=== PATIENT | female | born 1935 | race Caucasian/White ===

== ENCOUNTER 2016-10-13 19:52 | Inpatient (IN) | payer OTHER ==
[~2016-10-13] VITALS: Ht 152.4 cm; Wt 55.5 kg
[~2016-10-13 19:52] MED LIST: ALTACE10 MG PO; AMOXICILLIN500 MG PO; ARICEPT10 MG PO; ASPIR 8181 M1 PO; ASPIR-LOW81 MG PO; ASPIRIN E.C.81 M1 PO; Aricept PO; CALCIUM 600 +1 EAC2 PO; CHLORDIAZEPOXI1 EAC1 PO; COUMADIN,JANTO2.5 MG PO; COUMADIN2 MG PO; COUMADIN2.5 MG PO; COZAAR50 MG PO; CRESTOR10 MG PO; DETROL LA4 MG PO; DEXILANT60 MG PO; DOK PLUS TABLE1 EACH PO; Detrol LA PO; EXCEDRIN EXTRA1 EACH PO; FISH OIL 1,0001 EAC7 PO; FOSAMAX70 MG PO; GUAIFENESIN WI120 ML; LOPRESSOR25 MG PO; LYRICA50 MG; LYRICA75 MG PO; METOPROLOL SUCC25 MG PO; METOPROLOL TART25 MG PO; NAMENDA XR21 MG PO; NAMENDA10 MG PO; NORVASC5 MG PO; Namenda PO; OXYCODONE HCL15 MG PO; OXYCODONE HCL5 MG PO; OXYCONTIN10 MG PO; POLYETHYLENE GL17 GM PO; PRAVASTATIN SOD40 MG PO; SYNTHROID50 MCG PO; TOPROL; VOLTAREN50 M1 PO; VOLTAREN50 MG PO; WARFARIN SODIU2.5 MG PO; [UNRECOGNIZED DRUG - REMARK]; [UNRECOGNIZED DRUG - REMARK]; oxyCODONE PO
[2016-10-13 21:10] LABS: HEMATOCRIT 35.4 % (36.0-46.0); MCH 26.5 PG (29.0-34.0); MCHC 32.2 G/DL (30.0-36.0); MCV 82.3 FL (83-99); PLATELET COUNT 392 K/uL (156-360); RBC DIS.WIDTH-CV 18.3 % (11.8-14.6); WHITE BLOOD COUNT 11.4 K/uL (4.1-10.2)
[2016-10-13 21:16] LABS: INTER. NORMALIZED RATIO 1.2; PROTHROMBIN TIME 13.6 SEC (10.2-12.9)
[2016-10-13 21:18] LABS: PTT 29.8 SEC (25-37)
[2016-10-13 21:30] LABS: ANION GAP 11 MEQ/L (2-14); CHLORIDE 103 MEQ/L (99-109); POTASSIUM 3.7 MEQ/L (3.7-5.4); SAMPLE HEMOLYSIS CHECK 0; SAMPLE ICTERIC CHECK 0; SAMPLE LIPEMIA CHECK 0; SODIUM 138 MEQ/L (136-147)
[2016-10-13 21:31] LABS: TROP-I INTERPRETATION NEGATIVE; TROPONIN-I < 0.01 ng/mL (0.0-0.30)
[2016-10-13 21:35] LABS: GFR ESTIMATE (CALCULATED) 38 mL/min/; GLUCOSE 112 mg/dL (70-99); UREA NITROGEN (BUN) 18 mg/dL (9-23)
[2016-10-13] MEDS ORDERED: FAMOTIDINE40 MG PO (22:42)
[2016-10-13] MEDS ORDERED: BLUE EMU TP (22:43)
[2016-10-13] MEDS ORDERED: MUCINEX1200 MG PO (22:44)
[2016-10-13] MEDS ORDERED: TYLENOL EXTRA500 MG PO (22:44)
[2016-10-13] MEDS ORDERED: BENADRYL25 MG PO (22:44)
[2016-10-13] MEDS ORDERED: EXCEDRIN MIGRA1 EAC3 PO (22:45)
[2016-10-14] VITALS (7 sets, daily range): BP systolic 125–160; BP diastolic 59–79
[2016-10-15 04:08] VITALS: BP 158/65
[2016-10-15 07:06] LABS: HEMATOCRIT 28.3 % (36.0-46.0)
[2016-10-15 07:40] VITALS: BP 147/67
[2016-10-15 11:22] VITALS: BP 152/69
[2016-10-15 16:42] VITALS: BP 160/69
[2016-10-15 20:02] VITALS: BP 141/65
[2016-10-16 00:28] VITALS: BP 140/64
[2016-10-16 03:14] VITALS: BP 163/66
[2016-10-16 07:38] LABS: ANION GAP 10 MEQ/L (2-14); CHLORIDE 106 MEQ/L (99-109); GFR ESTIMATE (CALCULATED) > 59 mL/min/; GLUCOSE 176 mg/dL (70-99); POTASSIUM 3.6 MEQ/L (3.7-5.4); SAMPLE HEMOLYSIS CHECK 0; SAMPLE ICTERIC CHECK 0; SAMPLE LIPEMIA CHECK 0; SODIUM 138 MEQ/L (136-147); UREA NITROGEN (BUN) 8 mg/dL (9-23)
[2016-10-16 07:47] LABS: MCH 26.1 PG (29.0-34.0); MCV 81.7 FL (83-99); RBC DIS.WIDTH-CV 18.2 % (11.8-14.6); RBC DIS.WIDTH-SD 54.4 % (39-53); WHITE BLOOD COUNT 12.1 K/uL (4.1-10.2)
[2016-10-16 07:48] LABS: RED BLOOD COUNT 3.06 M/uL (3.80-5.20)
[2016-10-16 07:59] LABS: HEMATOLOGY COMMENT 1 INDICES RECAL; PLAT.SUFFICIENCY ADEQUATE
[2016-10-16 11:20] VITALS: BP 136/63
[2016-10-16 12:24] LABS: HEMATOCRIT 27.5 % (36.0-46.0); MCV 82.8 FL (83-99)
[2016-10-16 13:06] LABS: ANION GAP 9 MEQ/L (2-14); CHLORIDE 105 MEQ/L (99-109); GFR ESTIMATE (CALCULATED) > 59 mL/min/; GLUCOSE 150 mg/dL (70-99); POTASSIUM 3.8 MEQ/L (3.7-5.4); SAMPLE HEMOLYSIS CHECK 0; SAMPLE ICTERIC CHECK 0; SAMPLE LIPEMIA CHECK 0; SODIUM 135 MEQ/L (136-147); UREA NITROGEN (BUN) 8 mg/dL (9-23)
[2016-10-16 15:15] VITALS: BP 156/71
[2016-10-16 20:14] VITALS: BP 163/71
[2016-10-17 00:24] VITALS: BP 171/67
[2016-10-17 04:23] VITALS: BP 128/98
[2016-10-17 08:15] VITALS: BP 143/61
[2016-10-17 12:08] VITALS: BP 160/68
[2016-10-17 16:17] VITALS: BP 166/89
== END 2016-10-17 18:28 | DRG 470 ==
LOC: EME → EDBD 19:52 → EDOF 23:23 → 3EAST 23:23 → ENRESERV 23:26 → 3EAST 10-14 01:04
PROVIDERS: Emergency Medicine; Family Medicine; Orthopaedic Surgery Hand Surgery; Physician Assistant
PROC: 0SRR0JZ Replacement of Right Hip Joint, Femoral Surface with Synthetic Substitute, Open Approach (ICD-10-PCS; principal; 2016-10-14)
DX: S72.011A Unspecified intracapsular fracture of right femur, initial encounter for closed fracture (principal); I69.354 Hemiplegia and hemiparesis following cerebral infarction affecting left non-dominant side; F03.90 Unspecified dementia, unspecified severity, without behavioral disturbance, psychotic disturbance, mood disturbance, and anxiety; W10.9XXA Fall (on) (from) unspecified stairs and steps, initial encounter; E78.5 Hyperlipidemia, unspecified; F12.90 Cannabis use, unspecified, uncomplicated; I10 Essential (primary) hypertension; I25.10 Atherosclerotic heart disease of native coronary artery without angina pectoris; I25.2 Old myocardial infarction; I48.0 Paroxysmal atrial fibrillation; Z86.73 Personal history of transient ischemic attack (TIA), and cerebral infarction without residual deficits; J44.9 Chronic obstructive pulmonary disease, unspecified; K21.9 Gastro-esophageal reflux disease without esophagitis; M19.90 Unspecified osteoarthritis, unspecified site; M81.0 Age-related osteoporosis without current pathological fracture; Z79.01 Long term (current) use of anticoagulants; Z87.11 Personal history of peptic ulcer disease; Z95.5 Presence of coronary angioplasty implant and graft; Y92.410 Unspecified street and highway as the place of occurrence of the external cause; I69.319 Unspecified symptoms and signs involving cognitive functions following cerebral infarction; I08.1 Rheumatic disorders of both mitral and tricuspid valves
CPT/HCPCS: 71010; 73501; 80048; 80048 91; 84484; 85014; 85018; 85027; 85610; 85730; 86900; 86901; 93005; 94640; 97530 GP; 99281; 99285; J1650; J2270; J3010; J3370; J7030; J7042

== ENCOUNTER 2016-11-12 14:50 | Emergency (ER) | payer OTHER ==
[~2016-11-12] VITALS: Ht 147.3 cm; Wt 51.0 kg
[~2016-11-12 14:50] MED LIST changes: +BENADRYL25 MG PO; +BLUE EMU TP; +EXCEDRIN MIGRA1 EAC3 PO; +FAMOTIDINE40 MG PO; +MUCINEX1200 MG PO; +TYLENOL EXTRA500 MG PO
[2016-11-12 17:30] LABS: EOSINOPHIL (%) 1.3 % (0-5); EOSINOPHIL COUNT 0.1 K/uL (0-0.3); HEMATOCRIT 35.4 % (36.0-46.0); IMMATURE GRANULOCYTE (%) 0.3 % (0.0-0.7); INSTRUMENT ABS NEUTROPHIL CT 6.9 K/uL; LYMPHOCYTE COUNT 2.2 K/uL (1.0-2.8); MCH 26.2 PG (29.0-34.0); MCHC 31.4 G/DL (30.0-36.0); MCV 83.5 FL (83-99); MEAN PLAT.VOLUME 8.8 uM^3 (9.5-12.4); MONOCYTE (%) 7.4 % (3-12); MONOCYTE COUNT 0.7 K/uL (0-0.8); NEUTROPHIL (%) 69.1 % (45-76); NEUTROPHIL COUNT 6.9 K/uL (1.8-6.4); PLATELET COUNT 367 K/uL (156-360); RBC DIS.WIDTH-CV 18.1 % (11.8-14.6); RBC DIS.WIDTH-SD 55.5 % (39-53); RED BLOOD COUNT 4.24 M/uL (3.80-5.20); WHITE BLOOD COUNT 9.9 K/uL (4.1-10.2)
[2016-11-12 17:33] LABS: CHLORIDE 108 mEq/L (99-109); POTASSIUM 3.4 mEq/L (3.7-5.4); SODIUM 142 mEq/L (136-147)
[2016-11-12 17:35] LABS: GLUCOSE 98 mg/dL (70-99)
[2016-11-12 17:36] LABS: ANION GAP 14 MEQ/L (2-14)
[2016-11-12 17:37] LABS: TOTAL BILIRUBIN 0.2 mg/dL (0.0-1.0)
[2016-11-12 17:38] LABS: ALKALINE PHOSPHATASE 76 IU/L (3-129)
[2016-11-12 17:39] LABS: GFR ESTIMATE (CALCULATED) 57 mL/min/
[2016-11-12 17:40] LABS: UREA NITROGEN (BUN) 23 mg/dL (9-23)
[2016-11-12 17:47] LABS: TROP-I INTERPRETATION NEGATIVE; TROPONIN-I < 0.01 ng/mL (0.0-0.30)
[2016-11-12 17:59] LABS: INTER. NORMALIZED RATIO 1.8; PROTHROMBIN TIME 20.4 SEC (10.2-12.9)
[2016-11-12 18:14] LABS: ADD MIUA? YES; BILIRUBIN NEGATIVE; BLOOD SMALL; COLOR YELLOW ((YELLOW)); GLUCOSE (STRIP) NEGATIVE; KETONES NEGATIVE; LEUKOCYTES LARGE; NITRITE POSITIVE; PROTEIN (STRIP) 30; SPECIFIC GRAVITY 1.019 (1.000-1.030); UROBILINOGEN 0.2 MG/DL (0.2-1.0)
[2016-11-12 18:17] LABS: BACTERIA RARE /HPF; EPITHELIAL CELLS 1+ /HPF; HYALINE CASTS 0-5 /LPF; MUCUS TRACE /LPF; UCUL ADDED? YES; WHITE BLOOD CELLS 20-30 /HPF (0-5)
[2016-11-12 20:03] VITALS: BP 136/71
== END 2016-11-12 20:25 | disposition home or self-care (01) ==
LOC: EME → EDBD 14:50 → EME 14:50
PROVIDERS: Emergency Medicine
DX: M25.551 Pain in right hip (principal); M79.671 Pain in right foot; W18.30XA Fall on same level, unspecified, initial encounter; J44.9 Chronic obstructive pulmonary disease, unspecified; I10 Essential (primary) hypertension; I25.2 Old myocardial infarction; K21.9 Gastro-esophageal reflux disease without esophagitis; I69.354 Hemiplegia and hemiparesis following cerebral infarction affecting left non-dominant side; Z79.82 Long term (current) use of aspirin; Z79.891 Long term (current) use of opiate analgesic; F17.200 Nicotine dependence, unspecified, uncomplicated; R29.6 Repeated falls
CPT/HCPCS: 70450; 73590; 73630; 80053; 81003; 84484; 85025; 85610; 87077; 87086; 87186; 93005

== ENCOUNTER 2017-07-08 21:45 | Emergency (ER) | payer OTHER ==
[~2017-07-08] VITALS: Ht 147.3 cm; Wt 54.0 kg
[2017-07-08 21:50] VITALS: BP 199/97
== END 2017-07-08 23:39 | disposition home or self-care (01) ==
LOC: EME 21:45
DX: S50.862A Insect bite (nonvenomous) of left forearm, initial encounter (principal); W57.XXXA Bitten or stung by nonvenomous insect and other nonvenomous arthropods, initial encounter; I10 Essential (primary) hypertension; E78.5 Hyperlipidemia, unspecified; F17.200 Nicotine dependence, unspecified, uncomplicated; Z88.0 Allergy status to penicillin; Z91.041 Radiographic dye allergy status
CPT/HCPCS: 99281; 99283

== ENCOUNTER 2017-07-28 05:14 | Emergency (ER) | payer OTHER ==
[~2017-07-28] VITALS: Ht 149.9 cm; Wt 52.6 kg
[2017-07-28] MEDS ORDERED: NORCO 5/3251 TABLET PO (09:30)
[2017-07-28 10:01] VITALS: BP 194/90
== END 2017-07-28 09:30 | disposition home or self-care (01) ==
LOC: EME → EDBD 05:14 → EME 09:30
DX: S02.2XXA Fracture of nasal bones, initial encounter for closed fracture (principal); S06.0X0A Concussion without loss of consciousness, initial encounter; S70.02XA Contusion of left hip, initial encounter; S00.83XA Contusion of other part of head, initial encounter; W01.0XXA Fall on same level from slipping, tripping and stumbling without subsequent striking against object, initial encounter; Y93.01 Activity, walking, marching and hiking; E78.5 Hyperlipidemia, unspecified; F32.9 Major depressive disorder, single episode, unspecified; F41.9 Anxiety disorder, unspecified; I11.0 Hypertensive heart disease with heart failure; I50.9 Heart failure, unspecified; I25.2 Old myocardial infarction; J44.9 Chronic obstructive pulmonary disease, unspecified; K21.9 Gastro-esophageal reflux disease without esophagitis; Z86.73 Personal history of transient ischemic attack (TIA), and cerebral infarction without residual deficits; Z88.0 Allergy status to penicillin; F17.200 Nicotine dependence, unspecified, uncomplicated
CPT/HCPCS: 70450; 70486; 71045; 72125; 72131; 73502; 73700; 99281; 99285

== ENCOUNTER 2017-08-05 16:26 | Emergency (ER) | payer OTHER ==
[~2017-08-05] VITALS: Ht 144.8 cm; Wt 53.9 kg
[~2017-08-05 16:26] MED LIST changes: +NORCO 5/3251 TABLET PO
[2017-08-05 17:35] LABS: HEMATOCRIT 33.8 % (36.0-46.0); HEMOGLOBIN 10.9 G/DL (11.9-15.5); MCH 26.8 PG (29.0-34.0); MCHC 32.2 G/DL (30.0-36.0); MCV 83.3 FL (83-99); PLATELET COUNT 405 K/uL (156-360); RBC DIS.WIDTH-CV 16.6 % (11.8-14.6); RBC DIS.WIDTH-SD 50.1 % (39-53); RED BLOOD COUNT 4.06 M/uL (3.80-5.20); WHITE BLOOD COUNT 8.5 K/uL (4.1-10.2)
[2017-08-05 17:43] LABS: CHLORIDE 107 mEq/L (99-109)
[2017-08-05 17:44] LABS: SODIUM 138 mEq/L (136-147)
[2017-08-05 17:45] LABS: GLUCOSE 86 mg/dL (70-99)
[2017-08-05 17:49] LABS: CREATININE 0.9 mg/dL (0.6-1.3); GFR ESTIMATE (CALCULATED) > 59 mL/min/
[2017-08-05 17:50] LABS: UREA NITROGEN (BUN) 20 mg/dL (9-23)
[2017-08-05 17:56] LABS: TROP-I INTERPRETATION NEGATIVE; TROPONIN-I < 0.01 ng/mL (0.0-0.30)
[2017-08-05 19:55] VITALS: BP 181/84
== END 2017-08-05 19:56 | disposition home or self-care (01) ==
LOC: EME 16:26
PROVIDERS: Emergency Medicine
DX: S20.212A Contusion of left front wall of thorax, initial encounter (principal); S00.03XA Contusion of scalp, initial encounter; W01.0XXA Fall on same level from slipping, tripping and stumbling without subsequent striking against object, initial encounter; Z79.01 Long term (current) use of anticoagulants; E78.5 Hyperlipidemia, unspecified; I11.0 Hypertensive heart disease with heart failure; I50.9 Heart failure, unspecified; I48.91 Unspecified atrial fibrillation; F41.9 Anxiety disorder, unspecified; I25.2 Old myocardial infarction; J44.9 Chronic obstructive pulmonary disease, unspecified; K21.9 Gastro-esophageal reflux disease without esophagitis; F32.9 Major depressive disorder, single episode, unspecified; Z88.0 Allergy status to penicillin; F17.200 Nicotine dependence, unspecified, uncomplicated; Z86.73 Personal history of transient ischemic attack (TIA), and cerebral infarction without residual deficits; Z87.19 Personal history of other diseases of the digestive system
CPT/HCPCS: 70450; 71046; 80048; 84484; 85027; 93005; 99281; 99285

== ENCOUNTER 2017-09-04 15:11 | Emergency (ER) | payer OTHER ==
[~2017-09-04] VITALS: Ht 157.5 cm; Wt 52.7 kg
[2017-09-04 18:55] VITALS: BP 167/64
== END 2017-09-04 19:01 | disposition home or self-care (01) ==
LOC: EME 15:11
DX: S09.8XXA Other specified injuries of head, initial encounter (principal); S30.0XXA Contusion of lower back and pelvis, initial encounter; W18.30XA Fall on same level, unspecified, initial encounter; Y92.410 Unspecified street and highway as the place of occurrence of the external cause; R00.1 Bradycardia, unspecified; M43.16 Spondylolisthesis, lumbar region; M43.12 Spondylolisthesis, cervical region; M47.894 Other spondylosis, thoracic region; I69.954 Hemiplegia and hemiparesis following unspecified cerebrovascular disease affecting left non-dominant side; I11.0 Hypertensive heart disease with heart failure; I50.9 Heart failure, unspecified; E78.5 Hyperlipidemia, unspecified; Z79.01 Long term (current) use of anticoagulants; Z79.82 Long term (current) use of aspirin; F17.200 Nicotine dependence, unspecified, uncomplicated
CPT/HCPCS: 70450; 72070; 72100; 72125; 93005; 99281; 99285

== ENCOUNTER 2017-09-11 16:46 | Inpatient (IN) | payer OTHER ==
[~2017-09-11] VITALS: Ht 142.2 cm; Wt 52.4 kg
[2017-09-11 17:22] LABS: BASOPHIL (%) 0.2 % (0-1); EOSINOPHIL (%) 0 % (0-5); HEMATOCRIT 47.3 % (36.0-46.0); HEMOGLOBIN 15.4 G/DL (11.9-15.5); IMMATURE GRANULOCYTE (%) 0.6 % (0.0-0.7); LYMPHOCYTE (%) 3.3 % (15-42); LYMPHOCYTE COUNT 0.5 K/uL (1.0-2.8); MCH 26.4 PG (29.0-34.0); MCHC 32.6 G/DL (30.0-36.0); MCV 81.1 FL (83-99); MONOCYTE (%) 8.8 % (3-12); MONOCYTE COUNT 1.4 K/uL (0-0.8); NEUTROPHIL (%) 87.1 % (45-76); NEUTROPHIL COUNT 14.1 K/uL (1.8-6.4); PLATELET COUNT 343 K/uL (156-360); RBC DIS.WIDTH-CV 17.3 % (11.8-14.6); RBC DIS.WIDTH-SD 49.9 % (39-53); RED BLOOD COUNT 5.83 M/uL (3.80-5.20); WHITE BLOOD COUNT 16.2 K/uL (4.1-10.2)
[2017-09-11 17:36] LABS: ALBUMIN 4.6 g/dL (3.2-4.8); CHLORIDE 102 mEq/L (99-109); POTASSIUM 3.8 mEq/L (3.7-5.4); SODIUM 139 mEq/L (136-147)
[2017-09-11 17:38] LABS: GLUCOSE 165 mg/dL (70-99); TOTAL PROTEIN 8.1 g/dL (6.4-8.3)
[2017-09-11 17:40] LABS: TOTAL BILIRUBIN 0.4 mg/dL (0.0-1.0)
[2017-09-11 17:42] LABS: ALKALINE PHOSPHATASE 99 IU/L (3-129); CREATININE 1.3 mg/dL (0.6-1.3); GFR ESTIMATE (CALCULATED) 42 mL/min/
[2017-09-11 17:43] LABS: UREA NITROGEN (BUN) 31 mg/dL (9-23)
[2017-09-11 17:44] LABS: AST (GOT) 57 IU/L (2-34); DIRECT BILIRUBIN 0.2 mg/dL (0.0-0.3)
[2017-09-11 17:45] LABS: ALT (GPT) 40 IU/L (3-49); LIPASE 33 U/L (1.0-51.0); TROP-I INTERPRETATION NEGATIVE; TROPONIN-I < 0.01 ng/mL (0.0-0.30)
[2017-09-11 21:00] LABS: APPEARANCE CLEAR ((CLEAR)); BILIRUBIN NEGATIVE; BLOOD SMALL; COLOR YELLOW ((YELLOW)); GLUCOSE (STRIP) 50; KETONES 5; LEUKOCYTES NEGATIVE; NITRITE NEGATIVE; PROTEIN (STRIP) 100; SPECIFIC GRAVITY 1.029 (1.000-1.030); UROBILINOGEN 0.2 MG/DL (0.2-1.0)
[2017-09-11 21:13] LABS: INTER. NORMALIZED RATIO 1.5
[2017-09-11 21:16] LABS: PTT 27.8 SEC (25-37)
[2017-09-11 21:31] LABS: AMORPHOUS PHOSPHATE CRYSTALS 2+; BACTERIA 1+ /HPF; EPITHELIAL CELLS 1+ /HPF; MUCUS NONE SEEN /LPF; RED BLOOD CELLS 0-5 /HPF (0-5); UCUL ADDED? NO; WHITE BLOOD CELLS 0-5 /HPF (0-5)
[2017-09-11 23:30] VITALS: BP 158/81
[2017-09-12 03:50] VITALS: BP 140/67
[2017-09-12 08:51] VITALS: BP 145/81
[2017-09-12 14:02] LABS: INTER. NORMALIZED RATIO 2.1
[2017-09-12 16:01] VITALS: BP 170/77
[2017-09-12 19:28] VITALS: BP 194/91
[2017-09-12 19:38] VITALS: BP 176/74
[2017-09-13] VITALS (8 sets, daily range): BP systolic 127–190; BP diastolic 58–90
[2017-09-13 07:44] LABS: MCH 26.4 PG (29.0-34.0); MCHC 31.6 G/DL (30.0-36.0); MCV 83.8 FL (83-99); RBC DIS.WIDTH-CV 17.1 % (11.8-14.6); RBC DIS.WIDTH-SD 51.9 % (39-53); WHITE BLOOD COUNT 7.9 K/uL (4.1-10.2)
[2017-09-13 07:49] LABS: HEMOGLOBIN 10.1 G/DL (11.9-15.5); RED BLOOD COUNT 3.82 M/uL (3.80-5.20)
[2017-09-13 07:51] LABS: PLAT.SUFFICIENCY ADEQUATE
[2017-09-13 07:53] LABS: PLATELET COUNT 216 K/uL (156-360)
[2017-09-13 07:56] LABS: INTER. NORMALIZED RATIO 2.5
[2017-09-13 09:17] LABS: ALBUMIN 3.3 G/DL (3.2-4.8); CHLORIDE 107 MEQ/L (99-109); CREATININE 0.9 MG/DL (0.6-1.3); GFR ESTIMATE (CALCULATED) > 59 mL/min/; POTASSIUM 3.4 MEQ/L (3.7-5.4); SODIUM 137 MEQ/L (136-147); UREA NITROGEN (BUN) 22 mg/dL (9-23)
[2017-09-13 09:19] LABS: GLUCOSE 90 mg/dL (70-99)
[2017-09-13] MEDS ORDERED: RESTORIL30 MG PO (13:09)
[2017-09-13] MEDS ORDERED: FIORICET,ESG1 TABLET PO (13:10)
[2017-09-13 19:50] LABS: C DIFF TOXIN NEGATIVE (NEGATIVE)
[2017-09-14] VITALS (7 sets, daily range): BP systolic 98–141; BP diastolic 53–76
[2017-09-14 08:01] LABS: INTER. NORMALIZED RATIO 2.4
[2017-09-15 04:13] VITALS: BP 164/70
[2017-09-15 06:50] LABS: INTER. NORMALIZED RATIO 2.2
[2017-09-15 08:18] VITALS: BP 153/68
[2017-09-15 11:27] VITALS: BP 158/70
[2017-09-15 14:31] LABS: APPEARANCE CLEAR ((CLEAR)); BILIRUBIN NEGATIVE; BLOOD NEGATIVE; COLOR YELLOW ((YELLOW)); GLUCOSE (STRIP) NEGATIVE; KETONES NEGATIVE; LEUKOCYTES TRACE; NITRITE NEGATIVE; PROTEIN (STRIP) NEGATIVE; SPECIFIC GRAVITY 1.012 (1.000-1.030); UROBILINOGEN 0.2 MG/DL (0.2-1.0)
[2017-09-15 14:53] LABS: BACTERIA NONE SEEN /HPF; EPITHELIAL CELLS RARE /HPF; MUCUS NONE SEEN /LPF; RED BLOOD CELLS 0-5 /HPF (0-5); WHITE BLOOD CELLS 0-5 /HPF (0-5)
[2017-09-15 16:13] VITALS: BP 126/76
[2017-09-16 08:59] LABS: INTER. NORMALIZED RATIO 2.2
[2017-09-16 11:29] VITALS: BP 163/71
[2017-09-16 19:47] VITALS: BP 128/59
[2017-09-16 23:47] VITALS: BP 201/88
[2017-09-17 04:48] VITALS: BP 205/78
[2017-09-17 06:21] LABS: INTER. NORMALIZED RATIO 2.2
[2017-09-17 07:49] VITALS: BP 173/78
[2017-09-17 11:38] VITALS: BP 137/65
[2017-09-17] MEDS ORDERED: DONEPEZIL HCL10 MG PO (14:12)
[2017-09-17] MEDS ORDERED: CIPROFLOXACIN500 M1 PO (14:12)
[2017-09-17] MEDS ORDERED: METRONIDAZOLE500 MG PO (14:12)
[2017-09-17] MEDS ORDERED: COUMADIN1 MG PO (14:12)
[2017-09-17] MEDS ORDERED: PRAVASTATIN SOD80 MG PO (14:13)
[2017-09-17] MEDS ORDERED: LOPRESSOR25 MG PO (14:13)
[2017-09-17] MEDS ORDERED: RAMIPRIL10 MG PO (14:13)
[2017-09-17] MEDS ORDERED: COUMADIN2 MG PO (14:13)
[2017-09-17] MEDS ORDERED: CARBAMAZEPINE100 MG PO (14:14)
[2017-09-17] MEDS ORDERED: NAMENDA10 MG PO (14:33)
[2017-09-17] MEDS ORDERED: LEVOTHYROXINE50 MCG PO (14:34)
[2017-09-17 16:13] VITALS: BP 177/83
== END 2017-09-17 19:10 | disposition home or self-care (01) | DRG 392 ==
LOC: EME 16:46 → EDOF 21:44 → 3EAST 21:44 → ENRESERV 21:49 → CANRESERV 21:49 → ENRESERV 21:53 → 3EAST 22:57
PROVIDERS: Emergency Medicine; Internal Medicine; Internal Medicine Gastroenterology
DX: K52.9 Noninfective gastroenteritis and colitis, unspecified (principal); I48.0 Paroxysmal atrial fibrillation; R26.9 Unspecified abnormalities of gait and mobility; I10 Essential (primary) hypertension; E78.5 Hyperlipidemia, unspecified; F03.90 Unspecified dementia, unspecified severity, without behavioral disturbance, psychotic disturbance, mood disturbance, and anxiety; I25.10 Atherosclerotic heart disease of native coronary artery without angina pectoris; J43.9 Emphysema, unspecified; I69.354 Hemiplegia and hemiparesis following cerebral infarction affecting left non-dominant side; F32.9 Major depressive disorder, single episode, unspecified; M81.0 Age-related osteoporosis without current pathological fracture; M19.90 Unspecified osteoarthritis, unspecified site; F12.90 Cannabis use, unspecified, uncomplicated; F17.200 Nicotine dependence, unspecified, uncomplicated; F10.21 Alcohol dependence, in remission; I25.2 Old myocardial infarction; Z79.01 Long term (current) use of anticoagulants; Z79.82 Long term (current) use of aspirin; Z95.5 Presence of coronary angioplasty implant and graft; Z91.81 History of falling; Z87.11 Personal history of peptic ulcer disease
CPT/HCPCS: 70450; 72100; 74018; 74176; 80048; 80069; 80076; 81003; 83605; 83690; 84484; 85025; 85027; 85610; 85730; 87040; 87493; 87506; 97530 GO; 99281; 99285; J0360; J0744; J1956; J2060; J2270; J2405; J7030; S0030

== ENCOUNTER 2017-09-18 03:26 | Emergency (ER) | payer OTHER ==
[~2017-09-18] VITALS: Ht 142.2 cm; Wt 53.7 kg
[~2017-09-18 03:26] MED LIST changes: +CARBAMAZEPINE100 MG PO; +CIPROFLOXACIN500 M1 PO; +COUMADIN1 MG PO; +DONEPEZIL HCL10 MG PO; +FIORICET,ESG1 TABLET PO; +LEVOTHYROXINE50 MCG PO; +METRONIDAZOLE500 MG PO; +PRAVASTATIN SOD80 MG PO; +RAMIPRIL10 MG PO; +RESTORIL30 MG PO
[2017-09-18 05:47] VITALS: BP 211/85
== END 2017-09-18 06:15 | disposition home or self-care (01) ==
LOC: EME 03:26
DX: S00.83XA Contusion of other part of head, initial encounter (principal); W10.9XXA Fall (on) (from) unspecified stairs and steps, initial encounter; E78.5 Hyperlipidemia, unspecified; F32.9 Major depressive disorder, single episode, unspecified; F41.9 Anxiety disorder, unspecified; I11.0 Hypertensive heart disease with heart failure; I50.9 Heart failure, unspecified; I25.2 Old myocardial infarction; J43.9 Emphysema, unspecified; Z87.19 Personal history of other diseases of the digestive system; I69.354 Hemiplegia and hemiparesis following cerebral infarction affecting left non-dominant side; Z88.0 Allergy status to penicillin; F17.200 Nicotine dependence, unspecified, uncomplicated; Z96.641 Presence of right artificial hip joint; K21.9 Gastro-esophageal reflux disease without esophagitis
CPT/HCPCS: 70450; 70486; 71046; 72125; 72170